=== PATIENT | female | born 1965 | race Caucasian/White ===

== ENCOUNTER 2019-07-25 16:40 | Emergency (ER) | payer OTHER ==
[~2019-07-25] VITALS: Ht 167.6 cm; Wt 102.1 kg
[~2019-07-25 16:40] MED LIST: AMARYL4 MG PO; BLOOD PRESSURE PILL; FLEXERIL PO; GLUCOPHAGE1000 MG PO; GLYBURIDE 5 MG T5 M1 PO; LASIX 20 MG TAB20 MG PO; LEVOTHYROXIN0.125 M1 PO; LISINOPRIL2.5 MG PO; NAPROSYN500 MG PO; NEURONTIN 300300 M1 PO; NITROGLYCERIN0.4 MG SL; NORCO 5-325 TA1 EACH PO; OXYBUTYNIN 5 MG5 M1 PO; PAXIL10 MG PO; POTASSIUM20 PO; PRILOSEC 20 MG20 MG PO; PRINIVIL10 MG PO; PROCTOCREAM-HC30 G1 RC; SENNA8.6 MG PO; SIMVASTATIN40 MG PO; TUCKS1 EAC1 TOP; ZANTAC 150MG T150 MG PO; [UNRECOGNIZED DRUG - OTHER] PO
[2019-07-25 17:48] LABS: ABSOLUTE EOSINOPHILS 0.1 thou/uL (0.0-0.7); ABSOLUTE LYMPHOCYTES 1.6 thou/uL (0.8-5.3); ABSOLUTE MONOCYTES 0.4 thou/uL (0.0-1.2); ABSOLUTE NEUTROPHILS 4.5 thou/uL (1.6-8.1); BASOPHILS 0.5 %; EOSINOPHILS 1.5 %; HEMATOCRIT 40.8 % (37.0-47.0); HEMOGLOBIN 14.4 gm/dL (12.0-15.0); LYMPHOCYTES 24.4 %; MCH 30.6 pg (26.0-34.0); MCHC 35.3 g/dL (28.0-37.0); MCV 86.7 fL (80.0-100.0); MONOCYTES 6.3 %; MPV 9.9 fl. (7.2-11.1); NUCLEATED RBCS 0 /100WBC; PLATELET COUNT* 172 thou/uL (150-400); POLYS 67.3 %; RBC 4.71 mil/uL (4.20-5.00); RDW-CV 13.1 % (10.5-14.5); WBC 6.7 thou/uL (4.0-11.0)
[2019-07-25 17:52] LABS: CALCIUM 9.9 mg/dL (8.5-10.1)
[2019-07-25 17:57] LABS: ALBUMIN 4.2 g/dL (3.4-5.0); TOTAL BILIRUBIN 0.4 mg/dL (<0.1-1.0); TOTAL PROTEIN 7.9 g/dL (6.4-8.2)
[2019-07-25 18:02] LABS: ALCOHOL < 10 mg/dL (<10); SALICYLATE < 2.8 mg/dL (2.8-20.0)
[2019-07-25 18:03] LABS: ACETAMINOPHEN < 2 ug/mL (10-30)
[2019-07-25 18:09] LABS: URINE BILIRUBIN NEGATIVE (Negative); URINE BLOOD TRACE (Negative); URINE CLARITY CLEAR; URINE COLOR YELLOW; URINE GLUCOSE-RANDOM 3+ (Negative); URINE KETONES NEGATIVE (Negative); URINE LEUKOCYTES-REFLEX NEGATIVE (Negative); URINE NITRITE-REFLEX NEGATIVE (Negative); URINE PROTEIN NEGATIVE (Negative); URINE SPECIFIC GRAVITY >= 1.030 (1.005-1.030); URINE UROBILINOGEN 0.2 E.U./dl (0.2-1.0)
[2019-07-25 18:18] LABS: AMP/METHAMP Negative (Negative); BARBITURATES Negative (Negative); BENZODIAZEPINES Negative (Negative); COCAINE Negative (Negative); METHADONE Negative (Negative); OPIATES Negative (Negative); PCP Negative (Negative); THC Negative (Negative)
[2019-07-25 19:16] VITALS: BP 132/78
== END 2019-07-25 19:28 | disposition home or self-care (01) ==
LOC: M.ERS 16:40
PROVIDERS: Physician Assistant
DX: S16.1XXA Strain of muscle, fascia and tendon at neck level, initial encounter (principal); F41.9 Anxiety disorder, unspecified; E11.9 Type 2 diabetes mellitus without complications; Z90.49 Acquired absence of other specified parts of digestive tract; Z98.51 Tubal ligation status; Z79.899 Other long term (current) drug therapy; V89.2XXA Person injured in unspecified motor-vehicle accident, traffic, initial encounter; Y93.89 Activity, other specified; Y92.89 Other specified places as the place of occurrence of the external cause; Y99.8 Other external cause status

== ENCOUNTER 2019-07-31 16:51 | Emergency (ER) | payer OTHER ==
[~2019-07-31] VITALS: Ht 165.1 cm; Wt 102.1 kg
[2019-07-31] MEDS ORDERED: MEDROLDOSEPACK PO (17:54)
[2019-07-31] MEDS ORDERED: TYLENOL WITH CO1 TA1 PO (17:54)
[2019-07-31] MEDS ORDERED: LIDODERM1 EACH TRANSDERM (17:54)
[2019-07-31 18:18] VITALS: BP 125/85
== END 2019-07-31 18:19 | disposition home or self-care (01) ==
LOC: M.ERS 16:51
DX: S16.1XXA Strain of muscle, fascia and tendon at neck level, initial encounter (principal); M54.5 Low back pain; M54.6 Pain in thoracic spine; E11.9 Type 2 diabetes mellitus without complications; Z90.49 Acquired absence of other specified parts of digestive tract; Z98.51 Tubal ligation status; V89.2XXA Person injured in unspecified motor-vehicle accident, traffic, initial encounter; Y93.89 Activity, other specified; Y92.89 Other specified places as the place of occurrence of the external cause; Y99.8 Other external cause status

== ENCOUNTER 2020-01-02 13:37 | Emergency (ER) | payer OTHER ==
[~2020-01-02] VITALS: Ht 165.1 cm; Wt 104.3 kg
[~2020-01-02 13:37] MED LIST changes: +LIDODERM1 EACH TRANSDERM; +MEDROLDOSEPACK PO; +TYLENOL WITH CO1 TA1 PO
[2020-01-02] MEDS ORDERED: OXYBUTYNIN 5 MG5 M2 PO (14:00)
[2020-01-02 14:17] LABS: ABSOLUTE LYMPHOCYTES 1.9 thou/uL (0.8-5.3); ABSOLUTE MONOCYTES 0.5 thou/uL (0.0-1.2); BASOPHILS 0.4 %; EOSINOPHILS 0.7 %; HEMATOCRIT 40.5 % (37.0-47.0); LYMPHOCYTES 25.2 %; MCH 30.2 pg (26.0-34.0); MCHC 34.7 g/dL (28.0-37.0); MCV 87.1 fL (80.0-100.0); MONOCYTES 6.9 %; MPV 9.9 fl. (7.2-11.1); NUCLEATED RBCS 0 /100WBC; PLATELET COUNT* 186 thou/uL (150-400); POLYS 66.8 %; RBC 4.65 mil/uL (4.20-5.00); RDW-CV 13.5 % (10.5-14.5); WBC 7.4 thou/uL (4.0-11.0)
[2020-01-02 14:30] LABS: CALCIUM 9.2 mg/dL (8.5-10.1); CREATININE 0.9 mg/dL (0.6-1.3); POTASSIUM 3.7 mmol/L (3.5-5.1)
[2020-01-02 14:35] LABS: ALBUMIN 4.2 g/dL (3.4-5.0); TOTAL BILIRUBIN 0.4 mg/dL (<0.1-1.0); TOTAL PROTEIN 7.8 g/dL (6.4-8.2)
[2020-01-02 15:31] LABS: URINE BILIRUBIN NEGATIVE (Negative); URINE BLOOD NEGATIVE (Negative); URINE CLARITY CLEAR; URINE COLOR YELLOW; URINE GLUCOSE-RANDOM 3+ (Negative); URINE KETONES NEGATIVE (Negative); URINE LEUKOCYTES-REFLEX NEGATIVE (Negative); URINE NITRITE-REFLEX NEGATIVE (Negative); URINE PROTEIN NEGATIVE (Negative); URINE SPECIFIC GRAVITY <= 1.005 (1.005-1.030); URINE UROBILINOGEN 0.2 E.U./dl (0.2-1.0)
[2020-01-02 15:53] VITALS: BP 161/84
--- NOTE | 2020-01-03 14:15 | EKG ---
[place] [address] ELECTROCARDIOGRAM REPORT Name: IRIS GARCIA Room: [facility]#: [id number] Admission: 01/02/20 Attend Phys: Discharge: 01/02/20 Date of : 65 Date of Service: 01/02/20 1428 Report #: [id number] THIS REPORT FOR: //name// [facility] ED Test Date: 2020-01-02 Test Time: 14:28:38 Pat Name: IRIS GARCIA Department: Room: Gender: Bar[employer]if[employer] [place]: [place] : 1965 Requested By: Otis Collado Order Number: [id number] MD: Jason Payne Measurements Intervals [place] Rate: 77 P: 44 NE: 162 QRS: 4 QRSD: 87 T: 10 QT: 371 QTc: 420 Interpretive Statements Sinus rhythm Compared to ECG 10/23/2013 17:14:27 No significant changes Electronically Signed On 01-03-2020 14:14:03 CDT by Jason Payne [email or web address] <ELECTRONICALLY SIGNED> By: Jason Payne MD, [facility] 01/03/20 1414 1428 1428 Jason Payne MD, [facility] /EPI
== END 2020-01-02 15:53 | disposition home or self-care (01) ==
LOC: M.ERS 13:37
PROVIDERS: Physician Assistant
DX: E11.65 Type 2 diabetes mellitus with hyperglycemia (principal); R20.0 Anesthesia of skin; Z90.49 Acquired absence of other specified parts of digestive tract; Z98.51 Tubal ligation status

== ENCOUNTER 2020-09-09 12:12 | Emergency (ER) | payer BC ==
[~2020-09-09] VITALS: Ht 167.6 cm; Wt 99.8 kg
[~2020-09-09 12:12] MED LIST changes: +OXYBUTYNIN 5 MG5 M2 PO
[2020-09-09 13:10] LABS: URINE BILIRUBIN NEGATIVE (Negative); URINE BLOOD NEGATIVE (Negative); URINE CLARITY CLEAR; URINE COLOR YELLOW; URINE GLUCOSE-RANDOM 2+ (Negative); URINE KETONES NEGATIVE (Negative); URINE LEUKOCYTES-REFLEX 1+ (Negative); URINE NITRITE-REFLEX NEGATIVE (Negative); URINE PROTEIN NEGATIVE (Negative); URINE SPECIFIC GRAVITY 1.015 (1.005-1.030); URINE UROBILINOGEN 0.2 E.U./dl (0.2-1.0)
[2020-09-09 13:18] LABS: BACTERIA-REFLEX 1-9 Few /HPF (None Seen); MUCUS None Seen strn/LPF (None Seen); SQUAMOUS 0-3 Few /LPF (0-3); URINE RBC 3-10 Few /HPF (0-2); URINE WBC-REFLEX 6-15 Few /HPF (0-5)
[2020-09-09 13:19] LABS: CRYSTALS None Seen /LPF (None Seen); HYALINE CASTS 4-10 Moderate /LPF (None Seen)
[2020-09-09 13:23] LABS: HEMATOCRIT 42.2 % (37.0-47.0); HEMOGLOBIN 14.1 gm/dL (12.0-15.0); MCH 29.5 pg (26.0-34.0); MCHC 33.5 g/dL (28.0-37.0); MPV 9.6 fl. (7.2-11.1); NUCLEATED RBCS 0 /100WBC; PLATELET COUNT* 180 thou/uL (150-400); RBC 4.79 mil/uL (4.20-5.00); RDW-CV 13.7 % (10.5-14.5); WBC 8.8 thou/uL (4.0-11.0)
[2020-09-09 13:36] LABS: CALCIUM 9.3 mg/dL (8.5-10.1); CREATININE 1.1 mg/dL (0.6-1.3); POTASSIUM 4.5 mmol/L (3.5-5.1)
[2020-09-09 13:40] LABS: ALBUMIN 4.1 g/dL (3.4-5.0); TOTAL BILIRUBIN 0.5 mg/dL (<0.1-1.0); TOTAL PROTEIN 7.5 g/dL (6.4-8.2)
[2020-09-09 13:48] LABS: ABSOLUTE EOSINOPHILS 0.1 thou/uL (0.0-0.7); ABSOLUTE LYMPHOCYTES 1.9 thou/uL (0.8-5.3); ABSOLUTE MONOCYTES 0.3 thou/uL (0.0-1.2); ABSOLUTE NEUTROPHILS 6.5 thou/uL (1.6-8.1); PLATELET ESTIMATE ADEQUATE
[2020-09-09] MEDS ORDERED: PYRIDIUM100 M1 PO (13:50)
[2020-09-09] MEDS ORDERED: MACROBID 100 M100 M2 PO (13:50)
[2020-09-09] MEDS ORDERED: ZANAFLEX4 MG PO (14:14)
[2020-09-09 14:27] VITALS: BP 126/62
== END 2020-09-09 14:27 | disposition home or self-care (01) ==
LOC: M.ERS 12:12
PROVIDERS: Family Medicine; Nurse Practitioner Family
DX: N39.0 Urinary tract infection, site not specified (principal); E11.9 Type 2 diabetes mellitus without complications; Z79.899 Other long term (current) drug therapy

== ENCOUNTER 2021-05-16 14:12 | Emergency (ER) | payer OTHER ==
[~2021-05-16] VITALS: Ht 165.1 cm; Wt 79.8 kg
[~2021-05-16 14:12] MED LIST changes: +MACROBID 100 M100 M2 PO; +PYRIDIUM100 M1 PO; +ZANAFLEX4 MG PO
[2021-05-16 14:40] LABS: ABSOLUTE LYMPHOCYTES 1.4 thou/uL (0.8-5.3); ABSOLUTE MONOCYTES 0.4 thou/uL (0.0-1.2); ABSOLUTE NEUTROPHILS 4.6 thou/uL (1.6-8.1); BASOPHILS 0.4 %; EOSINOPHILS 0.7 %; HEMATOCRIT 39.6 % (37.0-47.0); HEMOGLOBIN 13.9 gm/dL (12.0-15.0); LYMPHOCYTES 21.5 %; MCH 30.4 pg (26.0-34.0); MCHC 35.1 g/dL (28.0-37.0); MCV 86.7 fL (80.0-100.0); MONOCYTES 6.6 %; MPV 9.8 fl. (7.2-11.1); NUCLEATED RBCS 0 /100WBC; PLATELET COUNT* 174 thou/uL (150-400); POLYS 70.8 %; RBC 4.56 mil/uL (4.20-5.00); RDW-CV 12.7 % (10.5-14.5); WBC 6.5 thou/uL (4.0-11.0)
[2021-05-16 14:50] LABS: CALCIUM 9.2 mg/dL (8.5-10.1); POTASSIUM 3.6 mmol/L (3.5-5.1)
[2021-05-16 14:51] LABS: ALBUMIN 3.9 g/dL (3.4-5.0); TOTAL BILIRUBIN 0.4 mg/dL (<0.1-1.0); TOTAL PROTEIN 7.1 g/dL (6.4-8.2)
[2021-05-16] MEDS ORDERED: ZOFRAN ODT4 MG DISSOLVE (17:20)
[2021-05-16] MEDS ORDERED: HYDROCODON-ACE1 EAC7 PO (17:20)
[2021-05-16] MEDS ORDERED: CARAFATE1 GM PO (17:20)
[2021-05-16 17:33] VITALS: BP 128/72
--- NOTE | 2021-05-18 11:38 | EKG ---
[place] [address] ELECTROCARDIOGRAM REPORT Name: SABRINA GARCIANIDarby Adams Room: [facility]#: [id number] Admission: 05/16/21 Attend Phys: Discharge: 05/16/21 Date of : 65 Date of Service: 05/16/21 1429 Report #: [id number] THIS REPORT FOR: //name// [facility] ED Test Date: 2021-05-16 Test Time: 14:29:07 Pat Name: IRIS GARCIA Department: Room: Gender: F [employer] Worker: : 1965 Requested By: Deven Arevalo Order Number: [id number] MD: Rick Erazo Measurements Intervals [place] Rate: 80 P: 65 ND: 162 QRS: 12 QRSD: 120 T: 7 QT: 368 QTc: 425 Interpretive Statements Sinus rhythm Probable left atrial enlargement Nonspecific intraventricular conduction delay Compared to ECG 01/02/2020 14:28:38 Intraventricular conduction delay now present Electronically Signed On 05-18-2021 11:38:28 CDT by Rick Erazo [email or web address] <ELECTRONICALLY SIGNED> By: Rick Erazo MD, [facility] 05/18/21 1138 1429 1429 Rick Erazo MD, [facility] /EPI
== END 2021-05-16 17:34 | disposition home or self-care (01) ==
LOC: M.ERS 14:12
PROVIDERS: Emergency Medicine Emergency Medical Services
DX: R10.10 Upper abdominal pain, unspecified (principal); Z20.822 Contact with and (suspected) exposure to COVID-19; R07.81 Pleurodynia; R11.2 Nausea with vomiting, unspecified; R43.8 Other disturbances of smell and taste; E11.9 Type 2 diabetes mellitus without complications; I10 Essential (primary) hypertension; F41.9 Anxiety disorder, unspecified; Z98.51 Tubal ligation status; Z90.49 Acquired absence of other specified parts of digestive tract; Z79.899 Other long term (current) drug therapy